=== PATIENT | male | born 1940 | race Caucasian/White ===

== ENCOUNTER 2017-02-01 16:08 | Inpatient (IN) | payer OTHER ==
[2017-02-01 16:32] LABS: % IMMATURE GRANULYOCYTES 0.2 % (0.0-1.1); ABSOLUTE IMMATURE GRANULOCYTES 0.02 10^3/uL (0.00-0.10); ADD DIFF? NO; ADD MORPH? NO; ADD SCAN? NO; ATYPICAL LYMPHOCYTE FLAG 0 (0-99); FRAGMENT RBC FLAG 0 (0-99); HEMATOCRIT 50.9 % (40.0-51.0); LEFT SHIFT FLG 0 (0-99); LIPEMIA HEMOLYSIS FLAG 90 (0-99); MEAN CELL HEMOGLOBIN 33.6 pg (27.9-34.1); MEAN CELL HEMOGLOBIN CONCENTR. 35.4 g/dL (32.4-36.7); MEAN PLATELET VOLUME 8.8 fL (8.7-11.7); PLATELET CLUMPS FLAG 0 (0-99); PLATELET COUNT 176 10^3/uL (150-400); RED BLOOD CELL COUNT 5.36 10^6/uL (4.40-6.38); RED CELL DISTRIBUTION WIDTH 13.3 % (11.5-15.2)
--- NOTE | 2017-02-01 16:36 | EDPHY ---
H & P Stated Complaint: 1200hrs-dizzy, headache, stubbling. Time Seen by Provider: 02/01/17 16:26 HPI/ROS: CHIEF COMPLAINT: Stroke symptoms HISTORY OF PRESENT ILLNESS: The patient is a 76 y/o male with a history of hypertension arriving with his daughter complaining of facial numbness and headache onset at 11:00 this morning, 5.5 hours ago. He felt normal upon waking , but late in the morning developed mouth and lip numbness, headache, and dizziness. He walked back up to his house and began to feel "woozy" and tired. He took Advil and then slept until 14:30. After waking, he felt "things weren't quite right" and he needed to hold onto the wall to walk due to stumbling. His daughter says he was having trouble reading, complained of a headache, was very unsteady, and his right hand felt numb. While reading, he couldn't see the end of the sentences and his right field of vision was dark. He denies chest pain, dyspnea, weakness. He denies a headache currently. He notes he never gets headaches and had a more severe headache on Sunday, 3 days ago, that resolved with Tylenol. He takes a daily aspirin; no anticoagulants. REVIEW OF SYSTEMS: Constitutional: No fever, no chills Eyes: see HPI ENT: No sore throat Respiratory: No cough, no shortness of breath Cardiac: No chest pain Gastrointestinal: No nausea, no vomiting, no abdominal pain Genitourinary: No hematuria, no dysuria Musculoskeletal: No leg pain or swelling Skin: No rash Neurological: see HPI Psychiatric: No depression - Personal History Current Tetanus/Diphtheria Vaccine: Unsure Current Tetanus Diphtheria and Acellular Pertussis (TDAP): Unsure - Medical/Surgical History PMH: PMH includes: Hypertension Hx Asthma: No Hx Chronic Respiratory Disease: No Hx Diabetes: No Hx Cardiac Disease: Yes Hx Renal Disease: No Hx Cirrhosis: No Hx Alcoholism: No Hx HIV/AIDS: No Hx Splenectomy or Spleen Trauma: No Other PMH: pmh- htn,umbilical hernia no surgery. psh- Bayron TKA, - Social History Smoking Status: Never smoked Additional Social History: Daughter at bedside. - Physical Exam Exam: General Appearance: Alert, pleasant Eyes: Pupils equal and round, no conjunctival pallor or injection, no nystagmus ENT, Mouth: Mucous membranes moist Neck: Normal inspection, no bruit Respiratory: Lungs are clear to auscultation Cardiovascular: Regular rate and rhythm Gastrointestinal: Abdomen is soft and non-tender, large ventral hernia Neurological: A&O, decreased peripheral vision on right, motor 5/5, sensory intact to light touch, normal [id number], normal gait Skin: Warm and dry Extremities: Nontender, no pedal edema Psychiatric: Mood and affect normal Constitutional: Initial Vital Signs Heart Rate 55 L 02/01/17 16:14 Respiratory Rate 12 02/01/17 16:14 Blood Pressure 129/84 H 02/01/17 16:14 O2 Sat (%) 91 L 02/01/17 16:14 O2 Delivery Mode Nasal Cannula O2 (L/minute) 2 Allergies/Adverse Reactions: animal dander Allergy (Verified 02/01/17 16:19) Home Medications: Medication Instructions Recorded Aspirin [Aspirin 81mg (*)] 81 mg PO DAILY 02/01/17 Lisinopril/Hctz 20/12.5MG 1 ea PO DAILY 02/01/17 [Zestoretic/Prinzide 20/12.5MG (*)] Multivitamins [Multivitamin (*)] 1 each PO DAILY 02/01/17 Medical Decision Making - Diagnostics Imaging Results: CT brain: multiple white matter hypodensities, atrophy Imaging: Discussed imaging studies w/ faculty i on call medical assistant Radiologist, I viewed and interpreted images myself ED Course/Re-evaluation: This is a 76 y/o male who presents for evaluation of stroke symptoms that began around 11:00, approximately 4.5 hours ago. His symptoms included headache, numbness around his mouth and lips, right hand numbness, stumbling, difficulty reading, and right visual field deficit. Most of these symptoms have improved upon my assessment, but he continues to have decreased peripheral vision on the right side. His neuro exam is otherwise nonfocal. Patient meets criteria for Stroke Alert. Plan for IV, labs, EKG, head CT, and neurology consult. He already took aspirin today. 1619: The 12 lead EKG was interpreted by myself. Wenckebach heart block rate 68. No prior EKGs available for comparison. See hard copy and/or "tracemaster" electronic copy for interpretation. 1634: Activated in-house Stroke Alert. 1638: Patient sent to CT. 1652: Noncontrast head CT negative for acute process, chronic changes present per Dr. Bray, radiology. 1654: Reassessed patient. He continues to have a "trace of a headache," but otherwise feels completely back to normal. Neurologic exam is normal. He denies current vision changes, ongoing numbness, dizziness, or any other symptoms. NIH stroke scale is 0. 1709: The 12 lead EKG was interpreted by myself. Wenckebach heart block with bradycardia, rate 37. No prior EKGs available for comparison. See hard copy and/ or "tracemaster" electronic copy for interpretation. BP remains normal. He is not on a beta gloria. He continues to deny any chest pain, shortness of breath, or lightheadedness. Consulted with hospitalist service. Dr. Almaraz accepts admission. 1718: Consulted with Dr. More, cardiology. He will consult on patient during admission. The pt remained asymptomatic throughout the remainder of his ED stay. groundwater monitoring technician: persistent Wenkebach rhythm, BP normal. Neuro exam remained normal on serial exams x 3. This pt utilized 35 minutes of critical care time exclusive of unbundled procedures. Time spend in history taking, serial reassessments, review of imaging studies, EKG and groundwater monitoring technician, consultations. Organ at risk: brain. Differential Diagnosis: includes though not limited to ACS, CVA, ICH, SAH, complete heart block, hypotension. - Data Points Laboratory Results: Laboratory Results 02/01/17 16:18 02/01/17 16:18 Medications Given: Acetaminophen (Tylenol) 650 mg PO Q4HRS PRN PRN Reason: Pain, Mild/Fever, Can Take PO Stop: 07/31/17 17:12 Last Admin: 02/02/17 07:55 Dose: 650 mg Aspirin Buffered (Aspirin Ec) 325 mg PO DAILY [facility] Stop: 08/02/17 08:59 Last Admin: 02/03/17 10:19 Dose: 325 mg Atorvastatin Calcium (Lipitor) 40 mg PO DAILY [facility] Stop: 08/01/17 12:14 Last Admin: 02/03/17 08:43 Dose: 40 mg Discontinued Medications Aspirin (Aspirin) 81 mg PO DAILY [facility] Stop: 08/01/17 08:59 Last Admin: 02/02/17 07:55 Dose: 81 mg Departure - Departure Disposition: [facility] Inpatient Acute Clinical Impression: Heart block TIA (transient ischemic attack) Qualifiers: Transient cerebral ischemia type: other Qualified Code(s): G45.8 - Other transient cerebral ischemic attacks and related syndromes Condition: Fair Report Scribed for: Patience Moon Report Scribed by: Cleo Goldstein Date of Report: 02/01/17 Time of Report: 16:39 Physician Review and Approval Statement: 02/01/17 16:39 Portions of this note were transcribed by a medical claims assistant. I personally performed a history, physical exam, medical decision making, and confirmed accuracy of information the transcribed note.
[2017-02-01 16:43] LABS: ANION GAP 11 mEq/L (8-16); CALCIUM 9.4 mg/dL (8.5-10.4); CARBON DIOXIDE 31 mEq/l (22-31); CHLORIDE 101 mEq/L (97-110); CREATININE 1.2 mg/dL (0.7-1.3); GLOMERULAR FILTRATION RATE 59; GLUCOSE 118 mg/dL (70-100); POTASSIUM 3.7 mEq/L (3.5-5.2); SODIUM 143 mEq/L (134-144)
--- NOTE | 2017-02-01 16:46 | CPEKG ---
Heart Rate: 68 RR Interval: 882 QRSD Interval: 92 QT Interval: 404 QTC Interval: 430 QRS [place]: -25 T Wave [place]: 28 EKG Severity - ABNORMAL ECG - EKG Impression: 2nd degree AV Block, type I EKG Impression: BORDERLINE LEFT AXIS DEVIATION Electronically Signed By: Patience Moon 01-Feb-2017 20:56:29
[2017-02-01 16:54] LABS: TROPONIN I < 0.012 ng/mL (0.000-0.034)
--- NOTE | 2017-02-01 17:12 | CPEKG ---
Heart Rate: 37 RR Interval: 1622 QRSD Interval: 90 QT Interval: 472 QTC Interval: 371 P [place]: 41 QRS [place]: -30 T Wave [place]: 29 EKG Severity - ABNORMAL ECG - EKG Impression: PREDOMINANT 2:1 AV BLOCK EKG Impression: MOBITZ I AV BLOCK (WENCKEBACH) EKG Impression: LEFT AXIS DEVIATION Electronically Signed By: Patience Moon 01-Feb-2017 20:55:43
[2017-02-01] MEDS ORDERED: ONDANSETRON DISINTEGRATING 4 MG TAB PO PRN (17:13)
[2017-02-01] MEDS ORDERED: ACETAMINOPHEN 325 MG TAB PO PRN (17:13)
[2017-02-01] MEDS ORDERED: ONDANSETRON 4 MG/2 ML VIAL IVP PRN (17:13)
[2017-02-01] MEDS ORDERED: LR 1,000 ML IV SCH (18:30)
--- NOTE | 2017-02-01 19:14 | GHP ---
[f rep st] HISTORY AND PHYSICAL DATE OF ADMISSION: 02/01/2017 CHIEF COMPLAINT: Mouth numbness. HISTORY OF PRESENT ILLNESS: A 76-year-old male with history of hypertension, prediabetes, and GERD, who arrived with his daughter complaining of mouth numbness and headache. He was down working in his workshop and approximately at 10:45 this morning he came up and felt floaty, just not like himself. He felt lightheaded and his stated he complained of being dizzy. He denied any chest pain, palpitations, sweats or nausea. No shortness of breath. After coming upstairs, he developed a headache. He sat down on a chair and said he was very unsteady when going from sitting to standing. She helped him to the bedroom and he was holding onto the schuster and stumbling and still complaining of being dizzy. He went to bed and slept for a couple of hours. He awoke complaining of cramps in his feet. At 2:30 p.m. he developed numbness in his mouth, right hand, and he could not see peripherally from his right eye. No fevers, chills, or sweats. No upper respiratory infection symptoms. He did complain of a headache Sunday that lasted 4 hours diffusely, which is unusual for him. This resolved with Tylenol. In the ER, he underwent CT head that was negative. EKG showed Wenckebach with heart rates 37-40s. Dr. More with Cardiology was consulted. He is not on any calcium-channel blockers or beta blockers. REVIEW OF SYSTEMS: I completed a 10-point review of systems, negative except as noted in HPI. PAST MEDICAL HISTORY: Prediabetes, GERD, hypertension, peripheral neuropathy of unknown etiology. PAST SURGICAL HISTORY: Two TKAs, kidney stone, a TURP. SOCIAL HISTORY: Lives in [facility] with his . No alcohol, tobacco, or illicits. MEDICATION: Aspirin, Lisinopril-hydrochlorothiazide. FAMILY HISTORY: Father of complication of a surgery. Mother with history of TIAs. PHYSICAL EXAMINATION: VITAL SIGNS: Blood pressure 127/62, temperature is afebrile. Heart rate is in the 50s now. Respirations 16, 98% on room air. GENERAL: Overweight male lying in bed in no acute distress. HEENT: PERRLA. EOMI. Oropharynx clear. CARDIOVASCULAR: Bradycardic. No murmurs, gallops, or rubs. No peripheral edema. LUNGS: Clear to auscultation bilaterally. ABDOMEN : Soft, nontender, nondistended. Positive bowel sounds. GENITOURINARY: No Polanco. MUSCULOSKELETAL: 5/5 upper and lower extremity strength. NEUROLOGIC: 2 through 12 intact. Normal sensation to touch. PSYCH: Alert and oriented x3. LABORATORY: WBC is 8, hemoglobin 18, hematocrit 50, platelets 176. Sodium 143 , potassium 3.7, chloride 107, carbon dioxide 31, creatinine is 1.2, baseline is 1. Troponin less than 0.012. EKG is personally reviewed by me. Leroy. CT head: Mild to moderate age-related atrophy. No hemorrhage, mass effect or definite acute peripheral infarct. ASSESSMENT AND PLAN: 1. Concern for transient ischemic attack: symptoms since resolved. CT was unremarkable. Will monitor on telemetry. Check echocardiogram. Physical Therapy, Occupational Therapy, speech evaluation. Neurology in the morning. Check lipids and A1c. He is already on a baby aspirin. Check an MRI. 2. Actually bradycardia, presumably Wenckebach on EKG per my review. The ED physician stated that did see type [address] More from Cardiology was consulted in the emergency room. He is not on any AV bernarda blocking agents. He currently has pacer pads in place. Monitor in the SDU. 3. Hypertension. Actually hold lisinopril hydrochlorothiazide with mild acute kidney injury. 4. Mild acute kidney injury. Creatinine is 1.2, baseline 0.9 to 1. Will hydrate gently. 5. Deep venous thrombosis prophylaxis. Sequential compression devices. 6. Diet regular. Disposition. Patient warrants observation admission given symptoms concerning for TIA and Wenckebach requiring telemetry, MRI and further Cardiac and Neurology evaluation. /[id number]/MODL MTDD
[2017-02-02 05:59] LABS: ANION GAP 11 mEq/L (8-16); CALCIUM 8.9 mg/dL (8.5-10.4); CARBON DIOXIDE 24 mEq/l (22-31); CHLORIDE 106 mEq/L (97-110); CHOLESTEROL 169 mg/dL (140-220); CHOLESTEROL/HDL RATIO 6.04 RATIO (1.00-4.97); CREATININE 0.9 mg/dL (0.7-1.3); GLOMERULAR FILTRATION RATE > 60; GLUCOSE 128 mg/dL (70-100); HIGH DENSITY LIPOPROTEIN 28 mg/dL (40-65); LDL/HDL RATIO 3.93 RATIO (1.00-3.64); LOW DENSITY LIPOPROTEIN 110 mg/dL (80-100); NON-HIGH DENSITY LIPOPROTEIN 141 mg/dL (90-129); POTASSIUM 4.1 mEq/L (3.5-5.2); SODIUM 141 mEq/L (134-144); TRIGLYCERIDE 159 mg/dL (40-150); VERY LOW DENSITY LIPOPROTEINS 31 mg/dL (8-25)
[2017-02-02] MEDS ORDERED: ASPIRIN 81 MG CHEWABLE TAB PO SCH (09:00)
--- NOTE | 2017-02-02 09:07 | CPEKG ---
Heart Rate: 62 RR Interval: 968 P-R Interval: 300 QRSD Interval: 80 QT Interval: 424 QTC Interval: 431 P [place]: -27 QRS [place]: -30 T Wave [place]: 5 EKG Severity - ABNORMAL ECG - EKG Impression: SINUS RHYTHM EKG Impression: FIRST DEGREE AV BLOCK EKG Impression: PROBABLE INFERIOR INFARCT, AGE INDETERMINATE Electronically Signed By: Marta Feliciano 02-Feb-2017 10:49:41
--- NOTE | 2017-02-02 09:21 | NEUROPROG ---
Assessment: HOSPITAL NEUROLOGY CONSULT REQUESTING: Kallie Almaraz MD REASON: stroke HPI: 76 year old right-handed man with a history of HTN, IFG, likely FARA who presented to our ED 02/01 with headache and multiple neurologic complaints. 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 He notes he felt a vague holocranial headache of dull aching quality. Headaches are unusual for him. He then felt "not well." He doesn't elaborate any further. He went back to his main house and notified his of his headache and not feeling well. He then developed perioral numbness/tingling and numbness/tingling in the right hand. This lasted about 30 minutes. He was sitting in a recliner and got up to go to bed and was found to be unsteady when walking. The patient does not recall these events, but his states he had to hold onto objects to steady himself to walk. He apparently said he was dizzy. This inspired transport to our ED. On arrival he was found to have an abnormal EKG with conduction abnormality which is being investigated now. CT head wo showed some chronic microvascular ischemic changes in the white matter, but nothing acute. He was admitted for further workup. He does feel much better since admission. He has no complaints on interview. ROS: As per the HPI, otherwise a complete 12 point ROS was performed and is negative ALLERGIES AND MEDS: As recorded in the EMR - reviewed and reconciled PFSH: As per the intake H&P by Dr. Almaraz from yesterday EXAM: VS reviewed in EMR GEN: WDWN laying in NAD HEENT: NCAT, sclera anicteric, conjunctiva not injected, MMM, oropharynx clear, no scalp tenderness NECK: supple, nontender, no meningismus CV: RRR s1 s2 wo m/r/c/g. Carotid pulses 2+ wo bruit NEURO: MS: awake, alert, oriented to all spheres. Speech nondysarthric. No language disturbance. Follows commands. Attends to both sides. Recent/remote memory grossly intact. Mood euthymic. Good fund of knowledge. CN: pupils 3mm round and reactive. Fundi with sharp discs. Right homonymous inferior quadrantopia. Primary gaze centered. Full ocular motility. Facial sensation preserved. Face symmetric. Hearing grossly intact to finger rub. Palatoglossal movements intact. Shoulder shrug and head turn strong. MOTOR: normal bulk/tone. No adventitial movements. Full power throughout. Subtle pronation of the RUE on [place] testing. SENSORY: symmetric LT/PP throughout. No extinction. COORD: no ataxia FN/HS. Rere labored in right hand. REFLEX: plantars down. No clonus. Absent ankle jerks, other DTRS trace. GAIT: deferred to PT safety eval DATA REVIEW: Labs reviewed in EMR LDL 110 A1c pending TTE pending PERSONALLY INTERPRETED RESULTS AND DATA: CT head wo per HPI IMPRESSION AND RECOMMENDATIONS: // SUSPECT ISCHEMIC STROKE // HTN // IFG // PROBABLE FARA Patient with episode of headache, dizziness, gait instability, perioral/right hand numbness and exam findings of right inferior quadrantopia and subtle RUE pronation. I am quite concerned for a posterior circulation stroke involving the left thalamus (right cheiro-oral syndrome), left superior occipital cortex ( hemianopia), dizziness/gait instability (cerebellum/brainstem) and subtle RUE pronation (multiple localizations). He does have some newly discovered cardiac conduction issues as well. - MRI brain wo - CTA head/neck - cont ASA - start statin for goal LDL < 70 - A1c goal < 6.5 - goal normotension - PT/OT/DATA ENTRY COORDINATOR consults - stroke education - further recommendations pending imaging results - cardiac and medical workup per primary team Objective: Vital Signs Temp Pulse Resp BP Pulse Ox 36.9 C 68 20 114/57 L 96 02/02/17 07:58 02/02/17 07:58 02/02/17 07:58 02/02/17 07:58 02/02/17 07:58 Laboratory Results 02/02/17 05:20 Allergies/Adverse Reactions: animal dander Allergy (Verified 02/01/17 16:19)
--- NOTE | 2017-02-02 09:46 | ASMTCASEMG ---
Living Arrangements What is your living Answers: With Spouse arrangement? Who do you live with? Type Of Residence What kind of residence do Answers: House you live in? Discharge Plan Comments Coordination Status Comments Notes: Patient is a 76yo male with a hx of hypertension, prediabetes, and GERD who was admitted for symptoms causing concern for transient ischemic attack. Patient will neeed cardiac and neurology evaluation. PT/OT/SPL/Inpatient rehab evals have been ordered. D/C needs TBD. CM will follow. Date Signed: 02/02/2017 09:45 AM Electronically Signed By:Kusum Jiménez LCSW
[2017-02-02] MEDS ORDERED: IOPAMIDOL (ISOVUE 370) 100 ML BTL IV ONE (11:20)
[2017-02-02] MEDS: ATORVASTATIN CALCIUM 40 MG TAB PO SCH (14:00)
--- NOTE | 2017-02-02 14:57 | ECHO ---
[email or web address] [address] [address] Main: [phone] Fax: Transthoracic Echocardiogram Name: FAY WEEKS MR#: [id number] Study Date: 02/02/2017 Study Time: 08:47 AM Date of : 1940 Age: 76 year(s) Height: 188 cm (74 in.) Weight: 115.67 kg (255 lb.) BSA: 2.41 m2 Gender: Male Examination: Echo with Agitated Saline Indication: Ischemic Stroke, Wenckebach, AV block. Image Quality: Contrast: Requested by: Kallie Almaraz BP: 115 mmHg/55 mmHg Heart Rate: Rhythm: Indication: Ischemic Stroke, Wenckebach, AV block. Procedure Staff Wheat Farmer: Facundo Del Rosario Reading Physician: Simone Guzman Requesting Provider: Conclusions: Normal size left ventricle. Normal global systolic LV function. EF is 74 %. No regional wall motion abnormality. Diastolic dysfunction is present. . An agitated saline study was performed and was negative for intracardiac shunting. Mild mitral valve leaflet calcification is present. Trivial mitral valve regurgitation. Mild aortic cusp calcification is noted. Measurements: Chambers Valvular Assessment AV/MV Valvular Assessment TV/PV Normal Normal Normal Name Value Range Name Value Range Name Value Range Ao Alana (MM): 3.7 cm (2.2 cm-3.7 AV Vmax: 1.66 m/s (1 m/s-1.7 PV Vmax: 0.84 m/s (0.6 m/s-0.9 cm) m/s) m/s) IVSd (2D): 1.0 cm (0.6 cm-1.1 AV maxP mmHg ( - ) PV PGmax: 3 mmHg ( - ) cm) AV meanP mmHg ( - ) LVDd (2D): 5.2 cm (4.2 cm-5.9 LVOT Vmax: 0.77 m/s (0.7 m/s-1.1 cm) m/s) LVDs (2D): 3.0 cm (2.1 cm-4 MERRITT (Vmax): 1.6 cm2 ( - ) cm) MV E Vmax: 0.66 m/s ( - ) LVPWd (2D): 0.9 cm (0.6 cm-1 MV A Vmax: 0.75 m/s ( - ) cm) MV E/A: 0.88 ( - ) LVOTd 2.1 cm 2.1 cm mm LVEF (2D): 74 (>=54 %) Continued Measurements: Chambers Valvular Assessment AV/MV Patient: FAY WEEKS Study Date: 02/02/2017 Page 1 of 2 08:47 AM Name Value Name Value LADs Lon.3 cm MV E/E' Septal: 11.00 LA Area: 17.5 cm2 MV E/E' Lateral: 19.80 LA Volume: 44 ml LA Volume Index: 18.3 ml/m2 Findings: Left Ventricle: Normal size left ventricle. No LV hypertrophy. Normal global systolic LV function. EF is 74 %. No regional wall motion abnormality. Diastolic dysfunction is present. . Right Ventricle: Normal size right ventricle. Normal RV function. Left Atrium: The left atrium is normal in size. An agitated saline study was performed and was negative for intracardiac shunting. Right Atrium: The right atrium is normal in size. Mitral Valve: Mild mitral valve leaflet calcification is present. Trivial mitral valve regurgitation. Aortic Valve: The aortic valve is tri-leaflet. Mild aortic cusp calcification is noted. There is no significant aortic valve regurgitation. No aortic valve stenosis is present. Tricuspid Valve: The tricuspid valve is normal in appearance and function. There is no tricuspid valve regurgitation. Pulmonic Valve: The pulmonic valve is normal in appearance and function. There is no pulmonic regurgitation seen. Aorta: The aorta is normal. Pericardium: No pericardial effusion. (No Signature Object) Patient: FAY WEEKS Study Date: 02/02/2017 Page 2 of 2 08:47 AM [id number]
--- NOTE | 2017-02-02 15:25 | HOSPPROG ---
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 -asa 325 mg daily - transition to anticoagulation in 10 days (Eliquis) * Heart block - most c/w Wenckebach - no definite indication for PCM at this time -monitor as inpatient another night -if no significant events overnight, then LINQ to be placed tomorrow before discharge * Hyperlipidemia -start lipitor * HTN -holding lisinopril/HCTZ - permissive HTN * Pre-DM -goal HgA1c < 6.5 - check in am * Obesity BMI 32 Subjective: minimal residual neuro deficit Objective: Vital Signs Temp Pulse Resp BP Pulse Ox 36.9 C 71 15 129/70 H 98 02/02/17 07:58 02/02/17 11:54 02/02/17 11:54 02/02/17 11:54 02/02/17 11:54 Laboratory Results 02/02/17 05:20 d/w Tarunshaheed Genao - strips show mostly Wenckebach, maybe Mobitz II briefly in transition, not enough for PCM at this time, but needs LINQ placed prior to discharge ECHO - normal EF MRI brain - occipital/temporal CVA c/w embolic shower CTA head - occluded CIGAR MAKING SUPERVISOR - Physical Exam Constitutional: no apparent distress, appears nourished, not in pain Cardiovascular: regular rate and rhythym, no murmur, rub, or gallop Respiratory: no respiratory distress, no rales or rhonchi, clear to auscultation Gastrointestinal: normoactive bowel sounds, soft, non-tender abdomen, no palpable masses Skin: no rashes or abrasions, no fluctuance, no induration Neurologic: AAOx3, sensation intact bilaterally Psychiatric: interacting appropriately, not anxious, not encephalopathic, thought process linear ICD10 Worksheet Patient Problems: Problems Problem Status Onset Heart block Acute TIA (transient ischemic attack) Acute
--- NOTE | 2017-02-02 16:08 | PDMN ---
Medical Necessity Medical necessity: est los>2mn for r/o TIA, subsequent dx of acute stroke, and heart block; admit to ICU/SDU for tele, neuro and cardiology consults, PT/OT/SLT ; comorbid htn, prediabetes; per order and H&P 02/01/17
--- NOTE | 2017-02-02 23:08 | GCON ---
[f rep st] CONSULTATION CARDIOLOGY CONSULTATION INDICATION FOR CARDIOLOGY CONSULTATION: Second-degree heart block type 1 and recent CVA. HISTORY OF PRESENT ILLNESS: The patient is a 76-year-old male. He reports significant past history that includes hypertension, hyperlipidemia and borderline diabetes. He and his informed me today that starting Sunday, he reported of having a moderate headache. He came and talked to his , who gave him some Tylenol and reporting within 30-40 minutes, he felt that symptoms went away. He had been reporting having headaches ongoing for the last few days. Yesterday morning at approximately 10:45, he felt like not quite himself. He felt lightheaded and complained of being dizzy. These symptoms did persist. With great concern, the patient was brought to the emergency department for further evaluation. Upon arrival, electrocardiogram was done, which showed the patient was in, what appears to be, second-degree heart block type 1, Wenckebach, with borderline left axis deviation. Heart rate was averaging 68 beats per minute. His blood pressure was stable. Due to his neurological symptoms, he did undergo head CT which showed mild to moderate age- related atrophy. No hemorrhage, mass effect or definitive acute peripheral infarction. Laboratory studies showed no anemia, normal electrolyte and renal function, normal glucose level, negative troponin level. Due to his heart block and his neurological symptoms, he is admitted up to the ICU. Overnight there, he reports his neurological symptoms have improved. He does report he has had headache earlier today but was given ibuprofen and reports symptoms have subsided. He has since then undergone further neurological evaluation by Neurology. He has had a brain MRI which shows a small volume of acute multifocal ischemia involving the left posterior arterial territory, left occipital lobe and medial left temporal lobe, which was felt to be likely ____ in origin. No hemorrhage or mass effect was noted. He also underwent head and neck CTA which showed moderate left and mild right carotid plaquing but no hemodynamically significant stenosis, occlusion or dissection. The patient denies any history of chest pain, shortness of breath, palpitations , orthopnea, PND, edema, near-syncope or syncopal events. On telemetry monitoring overnight in the ICU, it appears that he has converted between first degree AV block to second degree heart block type 1 with possible second-degree heart block type 2. He has remained hemodynamically stable and has been asymptomatic of any of these arrhythmias. No other malignant arrhythmias were noted on telemetry monitoring. No significant pauses (greater than 2 seconds) were noted on continuous cardiac monitoring. He reports prior to this incident, he had been in his normal state of health. Denies any recent fevers, chills, or night sweats. Denies any history of nausea , vomiting, hematemesis or blood in stool. He has significant cardiac risk factors that include age, sex, hypertension and hyperlipidemia. PAST MEDICAL HISTORY: Hypertension, hyperlipidemia, borderline diabetes, GERD, peripheral neuropathy, and kidney stones. PAST SURGICAL HISTORY: Umbilical hernia, bilateral total knee replacements and a TURP. FAMILY HISTORY: Patient reports no significant family history of coronary artery disease stating father of pulmonary embolisms after World War II in the 1950s. Mother of old age at age 93. His older sister, who is 10 years older, has recently had episodes of atrial fibrillation requiring cardioversion. SOCIAL HISTORY: He is . He has 4 adult children who are alive and well. Denies any tobacco use. Rare alcohol use. Denies any illicit drug use. Lives with his at home. ALLERGIES: The patient reports allergy to , animal dander but denies any drug allergies. HOME MEDICATIONS: Lisinopril/hydrochlorothiazide 20/12.5 one tablet p.o. daily. Multivitamin 1 tablet p.o. daily. Aspirin 81 mg p.o. daily. REVIEW OF SYSTEMS: A 10-point review of systems done on this patient all negative except as mentioned above. PHYSICAL EXAMINATION: GENERAL APPEARANCE: Medium build, moderately obese, male. He is alert and oriented to person, place, time, and situation. Appears to be under no acute distress at this time. VITAL SIGNS: Currently, blood pressure of 129/70, heart rate of 71, respirations 15, saturating 98% on room air. HEENT: Head is normocephalic. Lips and tongue are pink, moist with no signs of cyanosis. Conjunctivae pink. NECK: Trachea is midline. +2 carotid pulses bilateral. No auscultated bruits. No jugular vein distention. RESPIRATORY: Lungs clear to auscultation. No rhonchi, rales or wheezes. No accessory muscle use. No intercostal muscle retraction noted. CARDIAC: Regular rate, regular rhythm. S1, S2. No S3, S4, gallops, rubs or murmurs noted at this time. ABDOMEN: Soft, nontender. Bowel sounds x4 quadrants. No organomegaly. No palpable masses. SKIN: [place], warm, dry. No cyanosis. No clubbing. No peripheral edema. VASCULAR: +2 carotids bilateral , +2 radials bilateral, +1 posterior tibial pulses bilateral. LABORATORY STUDIES: Emergency department visit noted WBC of 8.19, hemoglobin of 18.0, hematocrit 50.9, platelet count of 176. Sodium 143, potassium 3.7, chloride 101, CO2 31, BUN 20, creatinine 1.2, glucose 118, calcium 9.4. Troponin less than 0.012. Today shows sodium 141, potassium 4.1, chloride 106, CO2 24, BUN 17, creatinine 0.9, glucose 128, calcium 8.9, triglycerides 159, total cholesterol 169, LDL of 110, HDL of 28. STUDIES: Electrocardiogram: As mentioned above. Head CT: As mentioned above. Brain MRI: As mentioned above. Head and neck CTA: As mentioned above. Echocardiogram showing normal global LV systolic function. EF of 74%. No wall motion abnormalities. Diastolic dysfunction noted. Agitated saline was performed which was negative for intracardiac shunting. Mild mitral valve leaflet calcification is present. Trivial MR. Mild aortic cusp calcification is noted. ASSESSMENT AND PLAN: 1. Atrioventricular block: Second degree heart block type 1 with intermittent second degree heart block type 2. Have reviewed this patient's strips. It does appear that his lowest heart rate has been in the high 30s. He has had no significant pauses. He is noted to have a normal left ventricular systolic function. He is hemodynamically stable. I have taken the patient's strips and electrocardiograms and have reviewed them both with Dr. Guzman and Dr. Pisano of Electrophysiology Services. It is felt that potentially this arrhythmia is a transient arrhythmia due to his recent cerebrovascular event. We will recommend that we continue monitoring him on continuous cardiac monitoring. He has had no symptoms suggesting of ischemia. He has had a negative troponin. His echocardiogram showed normal left ventricular wall motion with normal ejection fraction. As for cerebrovascular accident, it is felt by both Radiology and Neurology to be a possible thrombolic event which potentially could be due to potential atrial arrhythmia (atrial fibrillation/atrial flutter) , but none has been noted at this time. Reviewing Neurology's notes, they do recommend the patient to be fully anticoagulated in 10 days after aspirin therapy. Would recommend that if no significant arrhythmias are noted overnight , then patient having a 30-day monitor or loop recorder implantation. If he does show significantly worsening atrioventricular block or any significant pauses, then we would recommend permanent pacemaker implantation. I will make him n.p.o. after midnight. Dr. Pisano of Electrophysiology Services will see him tomorrow for further evaluation. Will order patient to get a TSH level and a magnesium level to be done in his a.m. labs for further evaluation. 2. Hypertension: Patient with noted history of hypertension. Noted left ventricular hypertrophy on echocardiogram. His blood pressure has been within normal limits at this time. He is currently not on home medications. We will continue monitoring blood pressure. If necessary, restart him on his lisinopril /hydrochlorothiazide. Would not recommend any calcium channel blockers or beta blockers due to atrioventricular block as mentioned above. Patient's does report that he does have significant snoring and is concerned that he may potentially quit breathing at night. Since he is staying the night, I have ordered for him to have an overnight oximetry study done while in the hospital. He may potentially benefit for evaluation of a full sleep study with Sleep Medicine if proven positive. 3. Cerebrovascular accident: MRI has suggested cerebrovascular accident to the occipital lobe, felt to be thrombolic event. We will do cardio workup as mentioned above. The patient has been started on aspirin therapy. As per Neurology's recommendations, he should be started on anticoagulation in 10 days. His blood pressure is well controlled at this time. We will continue to monitor. Recommendation to have LDL less than 70 per Neurology's recommendation. 4. Hyperlipidemia: The patient has been started on atorvastatin. His LDL this morning was 110. Recommendation of less than 70. He should have a repeated fasting lipid and liver panel in 6-8 weeks. /[id number]/MODL MTDD
[2017-02-03] MEDS: ATORVASTATIN CALCIUM 40 MG TAB PO SCH (08:43)
[2017-02-03] MEDS ORDERED: ASPIRIN 81 MG CHEWABLE TAB PO SCH (09:00)
--- NOTE | 2017-02-03 09:01 | CPEKG ---
Heart Rate: 63 RR Interval: 952 P-R Interval: 324 QRSD Interval: 78 QT Interval: 416 QTC Interval: 426 P [place]: 16 QRS [place]ell: -24 T Wave [place]: 16 EKG Severity - ABNORMAL ECG - EKG Impression: SINUS RHYTHM EKG Impression: FIRST DEGREE AV BLOCK EKG Impression: BORDERLINE LEFT AXIS DEVIATION Electronically Signed By: Marta Feliciano 03-Feb-2017 14:08:39
--- NOTE | 2017-02-03 10:15 | SOAPPROG ---
ER[facility] Progress Note Assessment/Plan: Assessment/Plan: This is a 76 yr old male who has been active and healthy until three days back when he had headache. He then had another episode of headache on and then dizziness which was osiel to instability but no presyncope or syncope. he had further neurological symptoms and came to the ER and got diagnosed with occipital stroke. He had Wenkebach periodicity on telemetry over the next 24 hours which then improved when he is awake., This AM he walked in the hallway and his HR increased to 100bpm. When he rested he had a couple of occasions of Wenkebach but no symptom related to it. In view of this and the fact that pt has not had prior symptoms of dizziness, presyncope or decreased exercise capacity, will ascribe the wenkebach to increased vagal tone and with lack of symptoms, will hold off on PPM. Since the is going to be prescribed OAC, no role for monitoring for AF since he is getting treated for it. Will continue to follow the pt. Continue to monitor pt for 24 hours. Will plan to eval the pt as outpatient. 02/03/17 10:06 Subjective: Pt is doing well. Denies dizziness. No decrease in exercise capacity Objective: Vital Signs Temp Pulse Resp BP Pulse Ox 36.9 C 68 16 109/49 L 94 02/03/17 07:41 02/03/17 07:41 02/03/17 07:41 02/03/17 07:41 02/03/17 07:41 Laboratory Results 02/02/17 05:20 02/02/17 02/03/17 02/04/17 05:59 05:59 05:59 Intake Total 250 Balance 250 Physical Exam - Physical Exam General Appearance: alert, no apparent distress EENT: PERRL/EOMI, normal ENT inspection Neck: non-tender, full range of motion, supple Respiratory: chest non-tender, lungs clear, normal breath sounds Cardiac/Chest: normal peripheral pulses, regular rate, rhythm, No edema Abdomen: normal bowel sounds, non-tender, soft, No organomegaly Skin: normal color, warm/dry ICD10 Worksheet Patient Problems: Problems Problem Status Onset Heart block Acute TIA (transient ischemic attack) Acute
[2017-02-03] MEDS: ASPIRIN EC 325 MG TAB PO SCH (10:19)
--- NOTE | 2017-02-03 12:55 | NEUROPROG ---
Assessment: BACKGROUND: 02/02 76 year old right-handed man with a history of HTN, IFG, likely FARA who presented to our ED 02/01 with headache and multiple neurologic complaints. 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 He notes he felt a vague holocranial headache of dull aching quality. Headaches are unusual for him. He then felt "not well." He doesn't elaborate any further. He went back to his main house and notified his of his headache and not feeling well. He then developed perioral numbness/tingling and numbness/tingling in the right hand. This lasted about 30 minutes. He was sitting in a recliner and got up to go to bed and was found to be unsteady when walking. The patient does not recall these events, but his states he had to hold onto objects to steady himself to walk. He apparently said he was dizzy. This inspired transport to our ED. On arrival he was found to have an abnormal EKG with conduction abnormality which is being investigated now. CT head wo showed some chronic microvascular ischemic changes in the white matter, but nothing acute. He was admitted for further workup. He does feel much better since admission. He has no complaints on interview. INTERVAL HISTORY: 02/03: Feeling good. No new complaints. EXAM: VS reviewed in EMR NIHSS 1 (right inferior quadrantopia) DATA REVIEW: Labs reviewed in EMR LDL 110 A1c pending TTE pending PERSONALLY INTERPRETED RESULTS AND DATA: CT head wo per background MRI brain wo: acute ischemia in the left occipital cortex and posterior inferior temporal lobe CTA head/neck - occlusion of the proximal left P1 segment of the [employer] IMPRESSION AND RECOMMENDATIONS: // ISCHEMIC STROKE // HTN // IFG // PROBABLE FARA // SUSPECTE OCCULT AFIB Patient with episode of headache, dizziness, gait instability, perioral/right hand numbness and exam findings of right inferior quadrantopia and subtle RUE pronation. MRI confirms left [employer] distribution stroke with thrombus in the proximal P1 segment. CTA head/neck otherwise does not show any critical findings. Very much suspect cardioembolism as mechanism. He does have underlying cardiac conduction findings discovered on this admission, but no afib captured. - cont ASA 325mg daily - transition to therapeutic anticoagulation in 10-14 days - start statin for goal LDL < 70 - A1c goal < 6.5 - goal normotension - will need outpatient FARA screening - PT/OT/CASH MANAGER consults - stroke education - cardiac and medical workup per primary team and cardiology - followup with me in neurology clinic in 6-8 weeks - will sign off. Please recall PRN. 40 mins in direct patient care activities on the floor, with over 50% spent in counseling patient and family Objective: Vital Signs Temp Pulse Resp BP Pulse Ox 36.9 C 70 17 123/62 H 94 02/03/17 07:41 02/03/17 12:00 02/03/17 12:00 02/03/17 12:00 02/03/17 07:41 Laboratory Results 02/02/17 05:20 02/02/17 02/03/17 02/04/17 05:59 05:59 05:59 Intake Total 250 Balance 250 Allergies/Adverse Reactions: animal dander Allergy (Verified 02/01/17 16:19)
--- NOTE | 2017-02-03 13:52 | ASMTCMCOM ---
CM Note CM Note Notes: Chart reivewed. Per therapies patient is at [facility] and has no current needs. To transfer to floor today. CM available should needs arise. Date Signed: 02/03/2017 01:52 PM Electronically Signed By:Cassidy Pierre RN
--- NOTE | 2017-02-03 16:12 | HOSPPROG ---
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 Pisano -suspect vagally mediated due to stroke, asymptomatic * Hyperlipidemia -start lipitor * HTN -holding lisinopril/HCTZ - permissive HTN * Pre-DM -goal HgA1c < 6.5 - pending * Obesity BMI 32 Subjective: No complaints, he feels no deficit from CVA Objective: Vital Signs Temp Pulse Resp BP Pulse Ox 36.3 C 71 17 127/64 H 95 02/03/17 15:58 02/03/17 15:58 02/03/17 12:00 02/03/17 15:58 02/03/17 15:58 Laboratory Results 02/02/17 05:20 02/02/17 02/03/17 02/04/17 05:59 05:59 05:59 Intake Total 250 Balance 250 d/w Dr. Pisano - likely vagal mediated Wenckebach, asymptomatic, HR increased appropriately with ambulation, unlikely to need PCM but watch another night here one tele. No loop needed as embolic source of CVA already determined with anticoagulation planned EKG viewed, my personal interpretation is - NSR - Physical Exam Constitutional: no apparent distress, appears nourished, not in pain Cardiovascular: regular rate and rhythym, no murmur, rub, or gallop Respiratory: no respiratory distress, no rales or rhonchi, clear to auscultation Gastrointestinal: normoactive bowel sounds, soft, non-tender abdomen, no palpable masses Skin: no rashes or abrasions, no fluctuance, no induration Neurologic: AAOx3, sensation intact bilaterally, No CN II-XII Intact (left eye droop) Psychiatric: interacting appropriately, not anxious, not encephalopathic, thought process linear ICD10 Worksheet Patient Problems: Problems Problem Status Onset Heart block Acute TIA (transient ischemic attack) Acute
[2017-02-04] MEDS: ATORVASTATIN CALCIUM 40 MG TAB PO SCH (08:26)
[2017-02-04] MEDS: ASPIRIN EC 325 MG TAB PO SCH (08:26)
[2017-02-04 08:27] VITALS: TEMP 98.9
--- NOTE | 2017-02-04 10:31 | SOAPPROG ---
ERICH Progress Note Assessment/Plan: Assessment/Plan: This is a 76 yr old male who has been active and healthy until four days back when he had headache. He then had another episode of headache on and then dizziness which was osiel to instability but no presyncope or syncope. he had further neurological symptoms and came to the ER and got diagnosed with occipital stroke. He had Wenkebach periodicity on telemetry over the next 48 hours which then improved when he is awake., Yesterday AM he walked in the hallway and his HR increased to 100bpm. When he rested he had a couple of occasions of Wenkebach but no symptom related to it. Overnight he did well from perspective of symptoms. However, he had night time wenkebach with which he was asymptomatic. In view of this and the fact that pt has not had prior symptoms of dizziness, presyncope or decreased exercise capacity, will ascribe the wenkebach to increased vagal tone and with lack of symptoms, will hold off on PPM. Since the is going to be prescribed OAC, no role for monitoring for AF since he is getting treated for it. Will plan to eval the pt as outpatient. Strongly recommended tat he calls us if he has dizziness, lightheadedness presyncope or syncope. If decreased exercise capacity he should call us. Will see him in the clinic in 4 weeks. 02/04/17 10:28 Subjective: Pt is doing well. Denies complains. Wenkebach at night time without symptoms. Objective: Vital Signs Temp Pulse Resp BP Pulse Ox 37.2 C 68 17 141/75 H 92 02/04/17 08:00 02/04/17 08:00 02/04/17 08:00 02/04/17 08:00 02/04/17 08:00 Laboratory Results 02/02/17 05:20 02/03/17 02/04/17 02/05/17 05:59 05:59 05:59 Intake Total 250 480 Balance 250 480 Physical Exam - Physical Exam General Appearance: alert, no apparent distress EENT: PERRL/EOMI, normal ENT inspection, pharynx normal Neck: full range of motion, supple, normal inspection Respiratory: chest non-tender, lungs clear, normal breath sounds, No crackles, No rales, No rhonchi Cardiac/Chest: regular rate, rhythm, No edema, No gallop, No JVD Abdomen: normal bowel sounds, non-tender, soft ICD10 Worksheet Patient Problems: Problems Problem Status Onset Heart block Acute TIA (transient ischemic attack) Acute
[2017-02-04 11:22] VITALS: BP 127/67; PULSE 51; RESP 14; O2SAT 96
--- NOTE | 2017-02-04 15:32 | ASDISCHSUM ---
Discharge Information Plan Status:Home with No Needs Medically Cleared to Leave:02/03/2017 Discharge Date:02/04/2017 11:45 AM CM D/C Disposition:Home, Routine, Self-Care ADT D/C Disposition:Home, Routine, Self-Care Projected Discharge Date:02/04/2017 12:00 AM Transportation at D/C:Family Discharge Delay Reason: Follow-Up Date:02/04/2017 12:00 AM Discharge Slot: Final Diagnosis:TIA, Heart block Placement Information Patient Contact Information Contact Name:CAROLYN Relationship: Address:[address] [place] [address] City:[place] Alternate Phone: State/Zip Code:[place] [address] Email: Financial Information Financial Class: Primary Plan Desc:MEDICARE INPATIENT Primary Plan Number:[id number] Secondary Plan Desc:JADE PPO Secondary Plan Number:[id number] Assessment Information [facility] Initial CM Assessment Living Arrangements What is your living Answers: With Spouse arrangement? Who do you live with? Type Of Residence What kind of residence do Answers: House you live in? Discharge Plan Comments Coordination Status Comments Notes: Patient is a 76yo male with a hx of hypertension, prediabetes, and GERD who was admitted for symptoms causing concern for transient ischemic attack. Patient will neeed cardiac and neurology evaluation. PT/OT/SPL/Inpatient rehab evals have been ordered. D/C needs TBD. CM will follow. Date Signed: 02/02/2017 09:45 AM Electronically Signed By:Kusum Jiménez LCSW [facility] CM Progress Note CM Note CM Note Notes: Chart reivewed. Per therapies patient is at [facility] and has no current needs. To transfer to floor today. CM available should needs arise. Date Signed: 02/03/2017 01:52 PM Electronically Signed By:Cassidy Pierre RN Case Management Discharge Plan Note Case Management Discharge Discharge Order Complete? Answers: Yes Patient to Obtain Answers: via Family Medications Transportation Arranged Answers: Family/Friends Transport will Pick (Date 02/04/2017 12:00 AM & Time) Family Notified Answers: Yes Notes: Family to transport Discharge Comments Notes: Patient has been discharged home with his and to f/u if he has dizziness, lightheadedness w/bull bucker. No other needs at this time. Date Signed: 02/04/2017 03:32 PM Electronically Signed By:Sarah Kirk LCSW Intervention Information
--- NOTE | 2017-02-05 01:47 | GDS ---
[f rep st] DISCHARGE SUMMARY DISCHARGE DIAGNOSES: 1. Acute posterior circulation stroke with occlusion of the left posterior cerebral artery suspiciou s for embolic source. 2. 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 3. Hyperlipidemia. 4. Hypertension. 5. Prediabetes. 6. Obesity, BMI 32. HISTORY: The patient is a 76-year-old male, who presented with transient symptoms, although his MRI showed an acute posterior circulation stroke. CT angiogram showed an occluded left posterior cerebra l artery. This was reviewed by Dr. Mayo of Neurology, and he felt the distribution of stroke was most consistent with an embolic source. He recommended increasing aspirin from 81 to 325 mg p.o. jim ly. Patient will be transitioned to oral anticoagulation in 10 days once the risk of hemorrhagic con version is reduced. He was given a prescription for Eliquis at the time of discharge. Lipitor was i nitiated for goal LDL less than 70. He also demonstrated a heart block with bradycardia throughout this hospitalization and was seen by C ardiology. Heart block was most consistent with a Wenckebach rhythm, and there was no definite indic ation for chest pain at this time. Patient remained asymptomatic throughout his hospitalization. Dr Domenica Pisano believes this is vagally mediated due to a stroke. Patient was instructed regarding returning for further evaluation if he does develop any syncope or lightheadedness suggesting this may have pr ogressed to a Mobitz type 2 rhythm, which we did see only a couple of beats of throughout this hospit alization. Dr. Pisano did not feel he needed any type of loop recorder or Holter monitoring upon disch arge as the decision regarding anticoagulation was already made by Neurology to fully anticoagulate. He should only be evaluated further if he develops recurrent symptoms. DISCHARGE MEDICATIONS: Please see computerized record for full detailed list. New medications: 1. Aspirin increased to 325 mg p.o. daily. 2. Atorvastatin 40 mg p.o. daily. 3. Lisinopril decreased to 10 mg p.o. daily with discontinuation of hydrochlorothiazide. 4. Prescription for Eliquis given 5 mg p.o. b.i.d., although he has instructions not to initiate thi s until February 11. ADDITIONAL DISCHARGE INSTRUCTIONS: 1. Continue aspirin through February 10. Start Eliquis in the morning of February 11 and stop a spirin. 2. Hemoglobin A1c is pending at discharge. Please follow up with primary care. Goal hemoglobin A1c is less than 6.5. 3. Blood pressure medications reduced due to significant hypotension throughout this hospitalization . Please follow up with primary care regarding ongoing hypertension management. Greater than 30 minutes' time was spent arranging this discharge. Patient was seen and examined by bren carvajal on the day of discharge. /[id number]/MODL
[2017-02-05 01:52] LABS: HEMOGLOBIN A1C 5.6 % (4.0-6.0)
== END 2017-02-04 11:45 | disposition home or self-care (01) | DRG 66 ==
LOC: F2N 17:30
PROVIDERS: ADMIT Internal Medicine; ATTEND Internal Medicine
DX: I63.432 Cerebral infarction due to embolism of left posterior cerebral artery (principal); I44.1 Atrioventricular block, second degree; E78.5 Hyperlipidemia, unspecified; I10 Essential (primary) hypertension; R73.03 Prediabetes; E66.09 Other obesity due to excess calories; Z68.32 Body mass index [BMI] 32.0-32.9, adult; Z96.653 Presence of artificial knee joint, bilateral
CPT/HCPCS: 82947-QW; 92523-GN; 97161-GP; 97165-GO; G8978-GP-CI; G8979-GP-CI; G8980-GP-CI; G8984-GO-CH; G8985-GO-CH; G8986-GO-CH; G9168-GN-CJ; G9169-GN-CJ; G9170-GN-CJ; Q9967

== ENCOUNTER → 2017-02-23 | Outpatient (CLI) | payer OTHER | LOC: BHFA 13:00 | PROVIDERS: ATTEND Internal Medicine Cardiovascular Disease | DX: I44.1 Atrioventricular block, second degree (principal); I45.9 Conduction disorder, unspecified ==

== ENCOUNTER → 2017-08-29 | Outpatient (CLI) | payer OTHER | LOC: BHLMT 09:45 | PROVIDERS: ATTEND Internal Medicine Cardiovascular Disease | DX: I44.1 Atrioventricular block, second degree (principal) | CPT/HCPCS: 93005-PO ==

== ENCOUNTER → 2017-10-30 | Outpatient (CLI) | payer OTHER | LOC: FIMAGING 13:13 | PROVIDERS: ATTEND Internal Medicine | DX: R79.89 Other specified abnormal findings of blood chemistry (principal); R60.9 Edema, unspecified ==

== ENCOUNTER → 2017-12-28 | Outpatient (CLI) | payer OTHER | LOC: BHFA 09:45 | PROVIDERS: ATTEND Internal Medicine Cardiovascular Disease | DX: I44.1 Atrioventricular block, second degree (principal) ==

== ENCOUNTER 2018-01-02 08:39 | Observation (INO) | payer OTHER ==
[2018-01-02] MEDS ORDERED: BACITRACIN IRRIGATION/NS 50,000 UNITS/1,000 ML BTL IRR ONE (08:43)
[2018-01-02] MEDS ORDERED: ceFAZolin 2 GM/DEXTROSE 100 ML IV ONE (08:43)
[2018-01-02] MEDS ORDERED: diphenhydrAMINE 25 MG CAP PO ONE (08:43)
[2018-01-02] MEDS ORDERED: DIAZEPAM 5 MG TAB PO ONE (08:43)
[2018-01-02] MEDS ORDERED: NS 1,000 ML IV ONE (08:43)
[2018-01-02 09:25] LABS: PLATELET COUNT 159 10^3/uL (150-400)
[2018-01-02 09:36] LABS: INR 1.11 (0.83-1.16); PROTIME(PATIENT) 14.5 SEC (12.0-15.0)
--- NOTE | 2018-01-02 11:06 | CPEKG ---
Test Reason : OPEN Blood Pressure : / mmHG Vent. Rate : 073 BPM Atrial Rate : 073 BPM P-R Int : 294 ms QRS Dur : 086 ms QT Int : 411 ms P-R-T Axes : -13 -25 018 degrees QTc Int : 453 ms Sinus rhythm Prolonged SD interval Borderline left axis deviation First degree AV block Confirmed by Gerhard Parisi ([id number]) on 01/02/2018 11:05:57 AM Referred By: Confirmed By:Gerhard Parisi
--- NOTE | 2018-01-02 11:16 | PDANEPAE ---
ANE Past Medical History - Pulmonary History Hx Oxygen in Use at Home: No Hx Sleep Apnea: Yes - Endocrine History Hx Diabetes: No - Chronic Pain History Chronic Pain: No ANE Review of Systems Review of Systems: ANE Patient History - Allergies Allergies/Adverse Reactions: animal dander Allergy (Verified 02/01/17 16:19) - Home Medications Home Medications: Multivitamins [Multivitamin (*)] 1 each PO DAILY 02/01/17 [Last Taken Unknown] Lisinopril/Hctz 10/12.5 mg [Zestoretic/Prinzide 10/12.5MG (*)] 1 ea PO DAILY [Last Taken Unknown] - Smoking Hx Smoking Status: Never smoked ANE Labs/Vital Signs - Labs Result Diagrams: 01/02/18 09:10 01/02/18 09:10 - Vital Signs Height: 190.5 cm Weight: 113.398 kg ANE Physical Exam - Airway Neck exam: FROM Mallampati Score: Class 3 Mouth exam: normal dental/mouth exam - Cardiovascular Cardiovascular: regular rate and rhythym - ASA Status ASA Status: III ANE Anesthesia Plan Total IV Anesthesia: Yes
[2018-01-02] MEDS ORDERED: ALBUTEROL 3 ML DEYVIAL IH PRN (11:17)
[2018-01-02] MEDS ORDERED: ONDANSETRON 4 MG/2 ML VIAL IVP PRN (11:17)
[2018-01-02] MEDS ORDERED: NALOXONE HCL 0.4 MG/ML INJ IVP PRN (11:17)
--- NOTE | 2018-01-02 11:29 | PDGENHP ---
History & Physical Chief Complaint: fatigue Relevant Physical Exam: s1s2 irreg cta ao3 Cardiorespiratory Assessment: type 2 second degree AV block with pauses of 4 sec. for dual chamber pacemaker
[2018-01-02] MEDS ORDERED: fentaNYL 100 MCG/2 ML INJ ONE (11:45)
[2018-01-02] MEDS ORDERED: PROPOFOL/EMULSION 500 MG/50 ML BOTTLE IV ONE (11:45)
[2018-01-02] MEDS ORDERED: IOPAMIDOL (ISOVUE-300) 100 ML BTL ONE (11:48)
[2018-01-02] MEDS ORDERED: BUPIVACAINE 0.75% 10 ML SDV ONE (11:48)
[2018-01-02] MEDS ORDERED: LIDOCAINE 1% 300 MG/30 ML SDV ONE (11:48)
[2018-01-02] MEDS ORDERED: SEVOFLURANE 250 ML BOTTLE IH ONE (11:52)
--- NOTE | 2018-01-02 15:17 | CPEKG ---
Test Reason : OPEN Blood Pressure : / mmHG Vent. Rate : 076 BPM Atrial Rate : 076 BPM P-R Int : 233 ms QRS Dur : 162 ms QT Int : 474 ms P-R-T Axes : 095 270 076 degrees QTc Int : 534 ms Atrial-sensed ventricular-paced rhythm Confirmed by Gerhard Parisi ([id number]) on 01/02/2018 3:17:01 PM Referred By: Confirmed By:Gerhard Parisi
--- NOTE | 2018-01-02 16:30 | EPPROC ---
Electrophysiology Procedure Note: PROCEDURE PERFORMED: 1. Implantation of an A/V Pacemaker 2. Subclavian vein angiography 3. Fluoroscopy INDICATION: 2nd degree AV block PROCEDURE NOTE: Patient presented to the cardiac catheterization laboratory in a fasting, post absorptive state . Dr. Guerra administered sedation. The left infraclavicular area was prepped and draped in the usual sterile fashion. Lidocaine plus bupivacaine was used for local anesthesia. Left subclavian venography was performed by injection of iodinated contrast into the left antecubital vein. This was done to assure patency of the vein and also to assess for any anatomical aberrations. Using a combination of blunt and sharp dissection and electrocautery, the dissection was carried down to the prepectoral fascia. A pocket was made in this anatomical plane. All bleeding was controlled with electrocautery. The pocket was packed with gauze soaked in antibiotic solution. Fluoroscopy was utilized during the entire procedure for venous access and placement of the leads. Using a direct stick technique the left extrathoracic axillary vein was accessed with 2 sticks using the modified Seldinger technique. Placement of the guidewires into the venous system was confirmed by low-pressure blood return and also by visualizing the guidewires advancing into the inferior vena cava. A purse string suture was applied around the guidewires. Two #7 Lao sheaths were advanced under fluoroscopic guidance over the guidewire. An active fixation ventricular lead was advanced into the right ventricular apex and screwed in place. An active fixation atrial lead was advanced into the right atrial appendage and screwed in place. The peel away sheaths were removed. Pacing thresholds, sensing parameters and lead impedances were measured. There was no diaphragmatic stimulation at maximum output. The leads were sutured to the prepectoral fascia with 3 nonabsorbable sutures each. The pocket was again inspected for any bleeding. The leads were attached to the pacemaker securely. The pacemaker was inserted into the pocket and secured in place with a nonabsorbable suture. Fluoroscopy was performed in ONEIL and TIMOTHY planes to verify right-sided placement of the leads. Also fluoroscopy of the pacemaker pocket was performed. The pacemaker pocket was closed in 3 layers with absorbable monocryl sutures and cesar. Appropriate dressing was applied. The patient left the cardiac catheterization laboratory in stable condition. Serial Numbers: 1. Device: [facility] Assurity [id number] 2. Atrial Lead: SJM Tendril [id number] SN [id number] 3. Ventricular Lead: SJM Tendril 2088 TC [id number] Stimulation Thresholds & Impedance Measurements: 1. Atrial Lead P 2.1 mV 1.2 V 0.5 ms 504 ohm 2. Ventricular Lead R 4.7 mV 1 V 0.5 ms 1025 ohm Ehsan Pacing Parameters 1. Pacing mode: DDDR 2. Lower rate: 60ppm 3. Upper tracking rate: 130 ppm 4. Upper sensor rate: 130 ppm Patient Problems: Problems Problem Status Onset TIA (transient ischemic attack) Acute Heart block Acute
[2018-01-03 04:51] LABS: PLATELET COUNT 138 10^3/uL (150-400)
--- NOTE | 2018-01-03 08:34 | PDCARPN ---
Cardiology Progress Note Chief Complaint: 1. Type 2 second degree AV block s/p implant of a dual-chamber PPM 01/03/2018 Assessment/Plan: Assessment: 1. New dual-chamber PPM in the setting of type 2 second degree AV bloc. Device interrogation demonstrates normal capture, sending, and impedance. Chest x- pending, labs are stable. Left pectoral dressing is clean, dry, and intact without evidence of hematoma, oozing, or other associated symptoms. 2. Hypertension - well-controlled 3. Paroxysmal atrial flutter - 8 second run of atrial flutter noted on telemetry overnight and device interrogation this morning. On Eliquis. 4. History of posterior circulation stroke 5. Long-term anticoagulation with Eliquis per neurology in the setting embolic nature patient's prior stroke Plan: 1. Hold Eliquis for 48hours post-procedure (re-start 01/04) 2. Patient is stable for discharge home today 01/03/18 09:52 Subjective: No issues overnight. Patient denies chest discomfort, palpitations, dizziness, lightheadedness, syncope, or near-syncope. Reviewed/Discussed With: multidisciplinary team Objective: Vital Signs (8 Hrs) Temp Pulse Resp BP Pulse Ox 01/03/18 03:25 36.4 C 70 15 117/73 92 Intake/Output (24 Hrs) 01/02/18 01/03/18 01/04/18 05:59 05:59 05:59 Intake Total 440 Balance 440 Intake: Oral (ml) 440 Other: Weight 113.398 kg Intake Quantity Yes Sufficient Number of Voids Toilet 2 Result Diagrams: 01/03/18 03:20 01/03/18 03:20 Telemetry: 8 second run of atrial flutter noted on Telemetry ICD10 Worksheet Patient Problems: Problems Problem Status Onset Heart block Acute TIA (transient ischemic attack) Acute
[2018-01-03 08:42] VITALS: BP 108/72
[2018-01-03] MEDS ORDERED: MULTIVITAMINS 1 EACH TAB PO SCH (09:00)
[2018-01-03] MEDS ORDERED: ATORVASTATIN CALCIUM 40 MG TAB PO SCH (09:00)
[2018-01-03] MEDS ORDERED: LISINOPRIL/HCTZ 10/12.5 MG 1 EA TAB PO SCH (09:00)
--- NOTE | 2018-01-03 10:19 | ASMTLACE ---
LACE Length of stay for Answers: Less than 1 day current admission Acuity / Level of Answers: No Care: Did the patient have an inpatient admission? Comorbidities - select Answers: Other Notes: HTN all that apply # of Emergency department Answers: 0 visits in the last 6 months Score: 1 Date Signed: 01/03/2018 10:18 AM Electronically Signed By:Shala Gaona RN
--- NOTE | 2018-01-03 10:26 | ASDISCHSUM ---
Discharge Information Plan Status:Home with No Needs Medically Cleared to Leave:01/02/2018 Discharge Date:01/02/2018 CM D/C Disposition:Home, Routine, Self-Care ADT D/C Disposition:Home, Routine, Self-Care Projected Discharge Date:01/02/2018 Transportation at D/C: Discharge Delay Reason: Follow-Up Date:01/02/2018 Discharge Slot: Final Diagnosis: Placement Information Patient Contact Information Contact Name:CAROLYN Relationship: Address:[address] [place] [address] City:[place] Alternate Phone: [facility]/Zip Code:[place] [address] Email: Financial Information Financial Class:Medicare Primary Plan Desc:MEDICARE OUTPATIENT Primary Plan Number:[id number] Secondary Plan Desc:JADE AGUAYO PPO Secondary Plan Number:[id number] Assessment Information LACE LACE Length of stay for Answers: Less than 1 day current admission Acuity / Level of Answers: No Care: Did the patient have an inpatient admission? Comorbidities - select Answers: Other Notes: HTN all that apply # of Emergency department Answers: 0 visits in the last 6 months Score: 1 Date Signed: 01/03/2018 10:18 AM Electronically Signed By:Shala Gaona RN Intervention Information Intervention Type:*HERMELINDO-Signed Date of Service:01/03/2018 09:58 AM Patient Type:Observation Staff Member:Shayy Salmeron Hours: Discipline: Severity: Comment:
--- NOTE | 2018-01-03 13:49 | GDS ---
ADMISSION DIAGNOSIS: Type 2 2nd degree atrioventricular block. DISCHARGE DIAGNOSIS: Type 2 2nd degree atrioventricular block, status post implant of a dual-chamber permanent pacemaker. HOSPITAL COURSE: The patient underwent implant of a new dual-chamber permanent pacemaker in the setting of type 2 second-degree AV block. Device interrogation demonstrates normal capture, sensing, and impedance this morning. Chest x-ray is pending. His labs are stable. His left pectoral dressing is clean, dry, and intact without evidence of hematoma, oozing, or other associated symptoms. There was an 8 second episode of atrial flutter noted on his telemetry overnight and on device interrogation this morning - this episode was asymptomatic. Patient is anticoagulated with Eliquis, which will be restarted on Sunday (48 hours post procedure). He is on long-term anticoagulation due to history of an embolic stroke. The patient is appropriate and stable for discharge this morning. PHYSICAL EXAM: GENERAL: The patient is alert and oriented x3. No apparent distress. VITAL SIGNS: Blood pressure 108/72, heart rate 64, SpO2 92% on room air. CARDIAC: Regular rate and rhythm. RESPIRATORY: Clear to auscultation without adventitious breath sounds. EXTREMITIES: Normal exam without edema. Pulses 2+ bilaterally. INTEGUMENT: Left pectoral dressing is clean, dry, and intact. No evidence of hematoma, oozing, swelling or other concerning symptoms to the left pectoral incision site. MEDICATIONS: See patient's electronic medical record for full medication list. We will wait to restart his Eliquis until Sunday, 48 hours post procedure. DISCHARGE INSTRUCTIONS: 1. Follow up in our device clinic in 1 week. 2. Restart Eliquis 48 hours post procedure. 3. Left arm precautions reviewed in detail with the patient. /[id number]/MODL MTDD
--- NOTE | 2018-01-03 16:59 | CPEKG ---
Test Reason : OPEN Blood Pressure : / mmHG Vent. Rate : 067 BPM Atrial Rate : 066 BPM P-R Int : 244 ms QRS Dur : 156 ms QT Int : 474 ms P-R-T Axes : -08 -85 076 degrees QTc Int : 501 ms Sinus rhythm Prolonged ID interval Left bundle branch block Confirmed by Gerhard Parisi ([id number]) on 01/03/2018 4:59:01 PM Referred By: Confirmed By:Gerhard Parisi
--- NOTE | 2018-01-07 18:00 | GPROG ---
POSTOPERATIVE ANESTHESIA NOTE The patient was taken to the recovery room in stable condition with no apparent anesthetic complicati ons. /[id number]/MODL
== END 2018-01-03 11:11 | disposition home or self-care (01) ==
LOC: FCATH 08:39 → F2W 12:51
PROVIDERS: ADMIT Registered Nurse; ATTEND Internal Medicine Cardiovascular Disease
DX: I44.1 Atrioventricular block, second degree (principal); I10 Essential (primary) hypertension; I48.0 Paroxysmal atrial fibrillation; Z79.01 Long term (current) use of anticoagulants; Z86.718 Personal history of other venous thrombosis and embolism
CPT/HCPCS: 33208; 71045; 71046; 93005; C1785; C1898; J0690; J2704; J3010; Q9967